=== PATIENT | female | born 1975 | race Caucasian/White ===

== ENCOUNTER 2020-11-14 06:00 | Day surgery (SDC) | payer BC, OTHER ==
[2020-11-11 17:45] LABS: BASOPHILS 0.4 % (0-2); EOSINOPHILS 1.7 % (0-7); HEMATOCRIT 40.9 % (36.0-48.0); HEMOGLOBIN 14.4 g/dL (12-16); IMMATURE GRANULOCYTES 0.2 % (0-5); LYMPHOCYTE ABS# 3.87 10x3/uL (1.18-3.74); LYMPHOCYTES 41.4 % (15-50); MCH 31.6 pg (26.0-34.0); MCHC 35.2 g/dL (31.0-37.0); MCV 89.9 fL (80.0-100.0); MONOCYTES 5.8 % (2-11); NEUTROPHIL ABS# 4.72 10x3/uL (1.56-6.13); NEUTROPHILS 50.5 % (40-80); PLATELET COUNT 206 10x3/uL (130-400); RBC 4.55 10x6/uL (4.00-5.40); RDW 12.5 % (11.5-14.5); WBC 9.4 10x3/uL (4.8-10.8)
[2020-11-11 18:07] LABS: UDS - AMPHET NEGATIVE QUAL (NEGATIVE); UDS - BARB NEGATIVE QUAL (NEGATIVE); UDS - BENZO POSITIVE QUAL (NEGATIVE); UDS - COCAINE NEGATIVE QUAL (NEGATIVE); UDS - OPIATE NEGATIVE QUAL (NEGATIVE); UDS - PCP NEGATIVE QUAL (NEGATIVE); UDS - THC NEGATIVE QUAL (NEGATIVE)
[~2020-11-14] VITALS: Ht 157.5 cm; Wt 102.7 kg
[2020-11-14] VITALS (7 sets, daily range): BP systolic 113–122; BP diastolic 58–77; Ht 157.5 cm; Wt 102.7 kg
--- NOTE | ~2020-11-14 | OP ---
PATIENT NAME: TANVI FLORIAN MEDICAL RECORD: [id number] :77 LOCATION:D.OPS ADMISSION DATE: SURGEON: STEPHANE BERMUDEZ MD DATE OF OPERATION: 11/14/2020 PREOPERATIVE DIAGNOSES: 1. Dysfunctional uterine bleeding. 2. Pelvic pain. POSTOPERATIVE DIAGNOSES: 1. Dysfunctional uterine bleeding. 2. Pelvic pain. PROCEDURE: 1. Diagnostic laparoscopy. 2. Total laparoscopic hysterectomy. 3. Bilateral salpingectomy. 4. Canas's culdoplasty/vault suspension. SURGEON: Stephane Bermudez MD NUT PACKER: Gabino Ernst DO FREELANCE DATA ENTRY: Vickie Jimenez. ANESTHESIOLOGIST: Conner Beavers MD ANESTHETIC: General. FINDINGS: Uterus is slightly enlarged and boggy. Both right and left tubes are interrupted, otherwise unremarkable. What was visualized of the abdominal anatomy was also unremarkable. SPECIMENS REMOVED: Uterus with cervix and bilateral tubes. SPECIMEN DISPOSITION: Pathology. ESTIMATED BLOOD LOSS: Less than or equal to 100 mL. FLUIDS: 1300 mL lactated Ringer's. URINE OUTPUT: 200 mL of clear urine. COMPLICATIONS: None. DRAIN: Singleton to gravity. INDICATIONS: The patient is a 45-year-old female using tubal ligation for control with heavy painful periods and dyspareunia. The patient no longer desires conservative therapy and has requested definitive treatment. DESCRIPTION OF PROCEDURE: After informed consent was assured, the patient was taken to the operating room where anesthetic was obtained without difficulty. The patient was now placed in Yellofin stirrups and prepped and draped in the usual sterile fashion. A uterine manipulator was placed and then attention was OPERATIVE REPORT [id number] TANVI FLORIAN directed to the abdomen. Incision was made to accommodate a 5-mm trocar, which was inserted without difficulty. Pneumoperitoneum was now developed and the patient was placed in a Trendelenburg position. With the accessory ports placed in the right and left lower quadrants, the bowel was now swept free of the pelvis and the dissection begins on the right. With the right tube elevated, the mesosalpinx was compressed, coagulated, and . This dissection was carried out underneath the right tube across the uteroovarian ligament and round ligaments. Right tube and Filshie clip was now removed from the abdomen and pelvis. The dissection was carried down the anterior leaf of the broad ligament and the bladder flap was developed to the midline. Posterior tissues were dissected free of the right uterine vascular bundle, which was now compressed, coagulated, and . Attention was now directed to the left side with the left tube was dissected free in similar manner. Dissection again was carried across the uteroovarian and the round ligaments. The left tube was from its attachments to the uterus and removed from the pelvis along with the Filshie clip. Dissection continues in the anterior broad ligament until the bladder flap was fully developed. Development of the bladder flap was initiated with a Thunderbeat coagulation cutter and concludes using peanut blunt dissection. Once the bladder was well below the level of dissection, the Thunderbeat coagulation cutter was used to enter the vaginal vault at the 3 o'clock position on the right. The dissection goes from 3-6 and then again from 3-12. Dissection concludes now on the patient's left from 12 o'clock to 6 o'clock fashion. Uterus was pulled into the vagina and pneumoperitoneum was maintained. Pelvis was irrigated, irrigant removed and bleeding vessels cauterized. Uterus was now removed. A Canas stitch was placed through the posterior cuff going through the right and left uterosacral ligament back across the posterior peritoneum through the right uterosacral ligament and then back into the vaginal vault. The cuff was now closed with Stratafix. The stitches was anchored at the apex and ran posteriorly. Once the cuff was completely closed, the modified Canas's culdoplasty and vault suspension was tied securing the apex of the vaginal vault to ligament support. Pneumoperitoneum was reestablished and visualization of the operative field reveals adequate hemostasis. Pneumoperitoneum was now released as the trocars were removed. All skin sites were closed with a subcuticular stitch and Dermabond applied. Sponge, lap, and needle count was correct times 2. TRANSINT:[id number] Voice Confirmation ID: [id number] DOCUMENT ID: [id number] STEPHANE BERMUDEZ MD CC: [id number] DICTATION DATE: 11/15/20899 BODY SHOP ESTIMATOR: 11/15/20942 [facility] 11/14/20 [facility] [address] [place] [address]
[~2020-11-14 06:00] MED LIST: AYGESTIN5 MG PO; CRESTOR10 MG PO; CYMBALTA60 MG PO; GLUCOPHAGE500 MG; PAMELOR10 MG PO; SYNTHROID150 MCG PO
[2020-11-14 07:57] LABS: HCG URINE NEGATIVE (NEGATIVE)
--- NOTE | 2020-11-14 14:25 | NUR ---
RECEIVED PT STRETCHER ACCOMPANIED BY PACU STAFF. PT AWAKE, ALERT AND ORIENTED X3. PT TRANFERRED SELF FROM STRETCHER TO BED. BED PLACED IN LOW POSITION; SIDE RAILS UP X2. PT ORIENTED TO ROOM. CALL LIGHT WITHIN REACH. IV OF LR INFUSING TO GRAVITY TO LEFT WRIST. IV PLACED ON IVP AT 125CC/HR. 3 LAPROSCOPIC INCISIONS NOTED; 1 @ UMBILICUS, 1 EACH AT RIGHT AND LEFT LOWER ABDOMEN. ALL INCISIONS CDI WITH DERMABOND. MARTINEZ CATHETER DRAINING LIGHT YELLOW, CLEAR URINE. SCD'S ON; MACHINE CONNCECTED AND CYCLING. INSTRUCTED PT ON INCENTIVE SPIROMETER. PT DEMONSTRATED USE WITH GOOD REPIRATORY EFFORT. LUNGS CLEAR; BOWEL SOUNDS PRESENT IN ALL 4 QUADRANTS. PT DENIES PAIN AT THIS TIME.
--- NOTE | 2020-11-14 15:09 | NUR ---
BLOOD SUGAR RECHECKED-244. DR. BERMUDEZ NOTIFIED. ORDERS RECEIVED.
--- NOTE | 2020-11-14 16:00 | NUR ---
DR. BERMUDEZ CALLED TO UNIT. ORDERS RECEIVED TO NORMALIZE PT AND D/C HOME, IF PATIENT DESIRES, IF ABLE TO VOID.
--- NOTE | 2020-11-14 16:53 | NUR ---
IV SALINE LOCKED. MARTINEZ D/C'D. PT UP TO VOID WITH STAND-BY ASSISTANCE. PT VOIDED SCANT AMOUNT CLEAR YELLOW URINE. PT BACK TO BED WITHOUT ASISTANCE. REGULAR DIET SERVED. BLOOD SUGAR CHECKED. INSULIN GIVEN PER SLIDING SCALE.
--- NOTE | 2020-11-14 17:30 | NUR ---
PT OOB AND AMB TO BR. VOIDS APPROX 30 ML OF CLOUDY, YELLOW URINE. PT BACK TO BED. PT REQUESTS AND RECEIVES ICE WATER.
--- NOTE | 2020-11-14 18:14 | NUR ---
PT VOIDED 100CC CLEAR YELLOW URINE. DISCUSSED WITH PT THAT ONE MORE VOID OF 100CC OR MORE IS NEEDED BEFORE SHE CAN DISCHARGE.
--- NOTE | 2020-11-14 18:22 | NUR ---
PRESCRIPTIONS GIVEN TO SIGNIFICANT OTHER TO HAVE FILLED. COPY MADE OF PRESCRIPTIONS AND PLACED ON CHART.
--- NOTE | 2020-11-14 18:46 | NUR ---
PT VOIDED 200CC LIGHT, CLEAR YELLOW URINE.
[2020-11-14] MEDS ORDERED: PERCOCET 7.5/321 TAB PO (18:53)
[2020-11-14] MEDS ORDERED: MOBIC7.5 MG PO (18:54)
[2020-11-14] MEDS ORDERED: NEURONTIN 300300 MG (18:55)
--- NOTE | 2020-11-14 19:20 | NUR ---
IV D/C'D. CATHETER INTACT. PRESSURE DRESSING APPLIED. REVIEWED DISCHARGE INSTRUCTIONS. PT STATES UNDERSTANDING. FOLLOW UP APPOINTMENT SCHEDULED FOR 11/27/20. PT DISCHARGED HOME VIA WHEELCHAIR TO PRIVATE VEHICLE.
== END 2020-11-14 19:23 | disposition home or self-care (01) ==
LOC: D.OPS 06:00 → D.LD 13:58 → D.OPS 19:23
PROVIDERS: ATTEND Obstetrics & Gynecology
DX: N93.8 Other specified abnormal uterine and vaginal bleeding (principal); R10.2 Pelvic and perineal pain